=== PATIENT | female | born 1980 | race Caucasian/White ===

== ENCOUNTER → 2023-04-18 10:48 | Outpatient (BNVA) | payer MEDICAID, SELFPAY | PROVIDERS: Visit Provider Obstetrics & Gynecology | DX: N93.9 Abnormal uterine and vaginal bleeding, unspecified (principal); N83.291 Other ovarian cyst, right side; N83.292 Other ovarian cyst, left side | CPT/HCPCS: 76830 ==

== ENCOUNTER → 2023-04-22 08:29 | Outpatient (BNVA) | payer MEDICAID, SELFPAY | PROVIDERS: Visit Provider Obstetrics & Gynecology | DX: Z01.818 Encounter for other preprocedural examination (principal); R87.619 Unspecified abnormal cytological findings in specimens from cervix uteri | CPT/HCPCS: 81025; 88305 ==

== ENCOUNTER 2023-06-20 11:38 | Day surgery (SDC) | payer MEDICAID, SELFPAY ==
[2023-06-20] VITALS (8 sets, daily range): BP systolic 120–147; BP diastolic 70–87; PULSE 62–74; RESP 16–18; TEMP 36.3; O2SAT 92–100
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
[2023-06-20 12:21] LABS: OR HCG Qualitative Urine Negative (Negative)
[2023-06-20] MEDS: sodium chloride 0.9% 1,000 ML 30 ML IV (12:23)
--- NOTE | 2023-06-20 12:37 | W.PM.OPSUD ---
Surgery/Procedure H&P Update DATE OF PROCEDURE: June 20, 2023 DATE H&P PERFORMED: 06/20/23 H&P UPDATE INFORMATION: I have reviewed H&P completed within last 30 days, I have examined patient prior to procedure, No changes to prior documentation and Changes to prior documentation as noted here CHANGES TO PREVIOUS DOCUMENTATION: plan also conization of cervix for cervical dysplasia PREOP DIAGNOSIS: cervical dysplasia; abnormal uterine bleeding PLANNED PROCEDURE: Operation Date: 06/20/23 13:30 Proposed Procedures p Hysteroscopy, endometrial sampling, possible endometrial polypectomy 18534 N93.9(Not Applicable) - Júnior Poole MD s Poss Poylpectomy(Not Applicable) - Júnior Poole MD
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
[2023-06-20] MEDS: vasopressin 20 unit/mL INJ 4 UNIT INJECTION (13:45)
--- NOTE | 2023-06-20 14:10 | ANE.PACU2 ---
Inpatient post-anesthesia follow up: Airway intact: Yes Vital signs: Temperature 97.3 F Pulse Rate 71 Respiratory Rate 16 Blood Pressure 133/85 Pulse Oximetry 98 Oxygen Delivery Me thod Room Air Oxygen Flow Rate Fraction of Inspir ed Oxygen Hydration adequate: Yes Nausea and vomiting: No Pain level: 2 Mental status: Baseline
--- NOTE | 2023-06-20 14:25 | PM.OP ---
Operative Report Date of procedure: June 20, 2023 Pre-op diagnosis: cervical dysplasia, YORDY II, on cervical biopsy abnormal uterine bleeding Post-op diagnosis: same Post-op findings: uterus sounded to 8 cm Endometrial cavity normal Minimal endometrial tissue No polyps or fibroids Cervix with large lesion covering the ectocervix, irregular Multiple branching vessels with different calibers seen on surface of cervical lesion Procedure done: hysteroscopy Curettage of uterus Conization of cervix Implants: none Specimens removed/disposition: endometrial curettings cone of cervix Surgeon: Júnior Poole MD Anesthesia: MAC Estimated blood loss (mL): 10 Complications: none Findings: uterus sounded to 8 cm Endometrial cavity normal Minimal endometrial tissue No polyps or fibroids Cervix with large lesion covering the ectocervix, irregular Multiple branching vessels with different calibers seen on surface of cervical lesion Brief History: 43 y.o. with abnormal uterine bleeding and colposcopically-directed cervical biopsy showing YORDY II. Procedure: Informed consent signed. Patient was taken to the operating room. Anesthesia was induced. Patient was placed in dorsolithotomy position, prepped and draped for hysteroscopy. A bivalve speculum was placed in the vagina. The cervix was noted to have a large irregular lesion covering the entire cervix, branching vessels were seen on the lesion. The anterior lip of the cervix was grasped with a sharp-toothed tenaculum. The cervix was serially dilated with Hegar dilators. A hysteroscope was placed into the endometrial cavity. The endometrial cavity was seen to be normal. There were no polyps or fibroids. There was minimal endometrial tissue. The hysteroscope was then removed. Endometrial curettage was done with a sharp curette. Endometrial tissue was sent to pathology. The cervix was then infiltrated at the cervicovaginal junction with 20 U of vasopressin to decrease bleeding. The cold-knife conization was then performed with a scalpel, removing as much of the lesion as was seen, to a depth of approximately 5-7 mm. Bleeding was controlled using Monsel?s solution and a single stitch of O-Vicryl applied posteriorly. Excellent hemostasis was noted. All instruments were then removed. The patient was placed supine, awakened, and taken to the recovery room. Postoperative condition: stable EBL: 10 cc Complications: none Sponge, needle and instrument counts were correct x two
== END 2023-06-20 15:05 | disposition home or self-care (01) ==
PROVIDERS: Anesthesiology; PCP Family Medicine; Visit Provider Obstetrics & Gynecology
PROC: 0UJD8ZZ Inspection of Uterus and Cervix, Via Natural or Artificial Opening Endoscopic (ICD-10-PCS; CPT 58555; principal; 2023-06-20 13:20)
PROC: (CPT 57520; 2023-06-20 13:20)
PROC: 0UBC7ZZ Excision of Cervix, Via Natural or Artificial Opening (ICD-10-PCS; CPT 57520; 2023-06-20 13:20)
DX: N87.1 Moderate cervical dysplasia (principal); N93.9 Abnormal uterine and vaginal bleeding, unspecified; F17.210 Nicotine dependence, cigarettes, uncomplicated
CPT/HCPCS: 57520; 58558; 81025; 84703; 88305; 88307; J1100; J1885; J2405; J2704; J3010; J3490; J7030

== ENCOUNTER → 2024-01-08 11:37 | Outpatient (BNVA) | payer MEDICAID, SELFPAY | PROVIDERS: PCP Family Medicine; Visit Provider Obstetrics & Gynecology | DX: Z01.419 Encounter for gynecological examination (general) (routine) without abnormal findings (principal) | CPT/HCPCS: 87624 ==